=== PATIENT | male | born 1955 | race American Indian/Alaskan Native ===

== ENCOUNTER 2017-09-19 09:06 | Emergency (ER) | payer MEDICAID, OTHER ==
[~2017-09-19] VITALS: Ht 172.7 cm; Wt 77.3 kg
[2017-09-19 09:11] VITALS: BP 149/80
== END 2017-09-19 10:37 | disposition home or self-care (01) ==
LOC: ER 09:07
DX: Z48.02 Encounter for removal of sutures (principal)
CPT/HCPCS: 99281; A6449